=== PATIENT | female | born 1960 | race Caucasian/White ===

== ENCOUNTER 2024-05-06 16:30 | Outpatient (RCR) | payer OTHER, SELFPAY ==
--- NOTE | 2024-03-28 17:06 | HP.PTEVAL ---
Patient's Visit Information Visit Information Visit Information: KING CHRISTY is a 63 year old F referred to Physical Therapy by Dr. 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 Date of Evaluation: 03/28/24 Physical Therapist: Miguel Andrade, PT, ATC Visit Plan Frequency: 2-3x /Week Duration: 4-6 Weeks Plan: R knee PROM/mobs, stretching and strengthening, core stab ex's, balance and proprio, nustep, and HEP Subjective Subjective: DOS: 03/26/24. Pt reports having a chronic Hx of R knee pain prior to having this surgery. Pt reports she is in a lot of pain at this time. Pt notes her L knee is very sore and she has to have that one replaced soon. Pt denies tingling or numbness at this time. Pt reports the area that is the most sore is where the tourniquet was. Pt reports she has been working on her ROM some at home, but notes she is having a very difficult time with moving her knee. Pt reports sleep difficulty at this time secondary to pain. Pt reports she has 4 steps to enter her home, and has to negotiate them one step at a time. 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 0/10 pain while sitting here at rest, 10/10 pain with movement. Pain R knee: Pain Intensity (Out of 10): 0 Pain Intensity Range: 10 Objective Objective: Neuro: B LE sensation is WNL to light touch TU sec Girth at joint line: L knee 36 cm, R knee 42 cm MMT: R knee flex= 0, ext = 3.5 #F; L knee flex= 24, ext= 23 #F ROM: L knee 0-127, R knee 0-20-45 degrees Gait: Pt is able to ambulate 130 feet with WW until [id number] to rest secondary to pain Balance/Special Test Scores WOMAC Total Score: 96 WOMAC Percentatge: 0 Goals Goal 1:: Decrease R knee pain x 50% to aid with sleep Goal Time Frame: 4-6 Weeks Goal 2:: Increase R knee strength x 20#F to aid with stair negotiation Goal Time Frame: 4-6 Weeks Goal 3:: Pt will perform TUG in under 10 seconds to aid with community ambulation Goal Time Frame: 4-6 Weeks Goal 4:: I with HEP Goal Time Frame: 4-6 Weeks Rehabilitation Potential Physical Therapy Diagnosis: Pt has R knee pain, weakness, and limited ROM secondary to R TKA Rehabilitation Potential: Good Anticipated Interventions Patient/Client Instruction: Educate patient on: Condition and Plan of Care For the Purpose of:: To improve self management Therapeutic Exercise to Include: Strength training, Endurance training, Balance training, Flexibilty training, Gait and locomotor training, Passive ROM, Active ROM and Dynamic Lumbar Stabilization For the Purpose of:: To decrease pain, To increase ROM and To improve muscle performance and motor function Cryotherapy (ice pack, ice massage): Yes For the Purpose of:: To decrease pain Text: Thank you for the opportunity to evaluate your patient. For Medicare and Medicare HMO plans, please review the plan of care and approve it. It will need to be FAXED BACK to us at [phone] for Medicare purposes. For Medicare only, by signing this I certify the plan of care. Please let me know if there are questions or concerns regarding this plan of care. Physician Signature: Date:
--- NOTE | 2024-05-06 16:56 | HP.PTDCSUM ---
Discharge Summary D/C summary: It has been my pleasure to treat KING CHRISTY referred by Dr. Gaurav Zapata MD, with the diagnosis of R TKA 03/26/24 for a total of 10 visit(s). Discharge Date: Please see the following information for a summary of their discharge status. Subjective Subjective: Pt reports feeling great and states she feels like she is ready to be discharged from therapy. Pain R knee: Pain Intensity (Out of 10): 1 Overall Improvement % Improvement: 90 Objective Objective/Function: ROM: R knee flex: 130 deg, ext: 8 deg MMT: R knee flex: 11 , ext: 39 #F TU.78 sec Pt is I with HEP Rx goals achieved Goals Goal 1:: Decrease R knee pain x 50% to aid with sleep Goal Progress: Goal Met Goal 2:: Increase R knee strength x 20#F to aid with stair negotiation Goal Progress: Goal Met Goal 3:: Pt will perform TUG in under 10 seconds to aid with community ambulation Goal Progress: Goal Met Goal 4:: I with HEP Goal Progress: Goal Met Plan Plan: Discharge to HEP D/C Information d/c sentence: If there are questions or concerns regarding this patient's physical therapy, please feel free to call me at [phone]. Thank you for the referral of this patient. Sincerely, Miguel Andrade, PT, ATC Balance/Gait/Functional tests Balance/Special Test Scores Lower Extremity Functional Score: 58 WOMAC Total Score: 96 WOMAC Percentage: 0 Improvement % Improvement: 90
== END 2024-05-06 19:00 | disposition home or self-care (01) ==
LOC: PT 16:30
PROVIDERS: Referring Provider Specialist; Visit Provider Specialist
DX: Z47.1 Aftercare following joint replacement surgery (principal); Z96.651 Presence of right artificial knee joint
CPT/HCPCS: 97110; 97140; 97161; 97530

== ENCOUNTER → 2024-05-30 | Outpatient (CLI) | payer OTHER, SELFPAY ==
[2024-05-30 16:24] LABS: Absolute Lymphocyte Count 2.27 X10^3/uL (0.83-4.51); Absolute Neutrophil Count 3.5 X10^3/uL (2.0-7.7); Basophil# 0.04 X10^3/uL; Basophil% 0.6 % (0-1); Eosinophil# 0.17 X10^3/uL; Eosinophils% 2.7 % (0-5); Hematocrit 38.3 % (37-47); Hemoglobin 12.2 g/dL (12.0-15.0); Lymphocyte # 2.27 X10^3/ul (0.83-4.51); Lymphocyte % 35.4 % (19-41); Mean Corp Hgb Conc 31.9 g/dL (32-36); Mean Corpuscular Hgb 27.7 pg (27.0-32.0); Mean Platelet Vol. 8.6 fl (6.2-12.0); Monocyte# 0.36 X10^3/uL; Monocyte% 5.6 % (0-10); NRBC Flagged by Analyzer 0 % (0-5); Neutrophil # 3.53 X10^3/uL (2.7-7.7); Neutrophil % 55.1 % (47-70); Platelet Count 282 K/mm3 (150-450); RBC Distribution Width CV 12.8 % (11.6-14.6); RBC Distribution Width SD 40.6 fl (35.1-43.9); White Blood Count 6.4 K/mm3 (4.4-11.0)
--- NOTE | 2024-05-30 16:28 | CT_ITS ---
EXAM: CT LEFT LOWER EXTREMITY WITHOUT INTRAVENOUS CONTRAST CLINICAL INDICATION: PAIN/OA TECHNIQUE: Helically acquired images were obtained of the left lower extremity without intravenous contrast. 2-D reformats were performed by the technologist. CTDIvol = ( 18.19 ) mGy, DLP = ( 1323.78 ) mGycm This CT exam was performed using one or more of the following dose reduction techniques: automated exposure control, adjustment of the mA and/or kV according to patient size, and/or use of iterative reconstruction technique. COMPARISON: No relevant prior studies available. FINDINGS: BONES/JOINTS: Moderate to severe tricompartmental osteoarthrosis of the knee is worse at the medial femorotibial compartment and patellofemoral compartment with mild lateral subluxation of the tibia relative to the femur. Tibial tubercle enthesopathy. At least moderate suprapatellar joint fluid. Moderate left hip osteoarthrosis. 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 At least moderate hypertrophic degenerative changes of the pubic symphysis. Calcaneal enthesopathy at the plantar aspect. Nonfused os trigonum. Ankle mortise is intact. No acute or healing fracture or malalignment. No other remarkable for unusual or suspicious lytic or sclerotic lesions of bone. SOFT TISSUES: Subcutaneous edema along the anterior aspect of the extremity. Soft tissues of the pelvis are unremarkable. Soft tissues of the ankle/foot are unremarkable. No radiopaque foreign body. REPRODUCTIVE: Bilateral tubal ligations. CT/Extremity Lower without Contra IMPRESSION: 1. Moderate to severe tricompartmental osteoarthrosis of the knee 2. At least moderate suprapatellar joint fluid. 3. 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 Electronically Signed: Evans Lester MD at 21:19 EDT ,
[2024-05-30 16:37] LABS: Albumin, Serum 4.1 g/dL (3.2-5.0); Anion Gap 7 (5-15); BUN 13 mg/dL (7-18); BUN/Creat Ratio 15.3 RATIO (10-20); Calcium,Total 9.6 mg/dL (8.5-10.1); Chloride 99 mmol/L (98-107); Creatinine, Serum 0.85 mg/dL (0.55-1.02); EST Glomerular Filtration Rate 72 mL/min (>60); Est Glom Filt Rate - Afr Amer 87 mL/min (>60); Glucose 130 mg/dL (74-106); Potassium 3.7 mmol/L (3.5-5.1); Sodium Level 135 mmol/L (136-145)
== END | disposition home or self-care (01) ==
PROVIDERS: Referring Provider Specialist; Visit Provider Specialist
DX: Z01.818 Encounter for other preprocedural examination (principal); M25.562 Pain in left knee; M21.162 Varus deformity, not elsewhere classified, left knee; M17.32 Unilateral post-traumatic osteoarthritis, left knee; M17.12 Unilateral primary osteoarthritis, left knee
CPT/HCPCS: 36415; 73700; 80048; 82040; 83036; 85025; 87077; 87081

== ENCOUNTER → 2024-06-24 | Outpatient (CLI) | payer OTHER, SELFPAY ==
--- NOTE | 2024-06-24 15:30 | VDLE_ITS ---
Reason For Study: Left leg swelling RIGHT LEFT CFV is compressible, spontaneous, phasic, GSV is normal. competent and demonstrates normal CFV is compressible, spontaneous, phasic, augmentation. competent, and demonstrates normal Procedure augmentation. This is a venous duplex using B-mode, color FV is compressible, spontaneous, phasic, flow and spectral Doppler. competent and demonstrates normal Exam performed in department. augmentation. A preliminary report was called and/or faxed POP V is compressible, spontaneous, phasic, to [facility]. competent and demonstrates normal augmentation. T/P Trunk is compressible. PTV is compressible. LT PerV is compressible. VL/Venous Duplex US, Unilateral Interpretation Summary Deep veins of the left lower extremity are patent and compressible segmentally. There is no evidence of left lower extremity deep vein thrombosis. Valvular competence appears intac t within the proximal deep venous system on the left . The left great saphenous vein appears patent a nd compressible segmentally. The right common femoral vein is patent and compressible . Ordering Physician: Junito Simental Performed By: Bertha Hahn RVT
== END | disposition home or self-care (01) ==
PROVIDERS: Referring Provider Physician Assistant Surgical; Visit Provider Physician Assistant Surgical
DX: R22.42 Localized swelling, mass and lump, left lower limb (principal)
CPT/HCPCS: 93971

== ENCOUNTER 2024-07-16 16:00 | Outpatient (RCR) | payer OTHER, SELFPAY ==
--- NOTE | 2024-06-14 13:59 | HP.PTEVAL ---
Patient's Visit Information Visit Information Visit Information: KING CHRISTY is a 63 year old F referred to Physical Therapy by Dr. Gaurav Zapata MD with a diagnosis of L TKA 06/11/24. Date of Evaluation: 06/13/24 Physical Therapist: Miguel Andrade, PT, ATC Visit Plan Frequency: 2x /Week Duration: 4-6 Weeks Plan: L knee PROM, mobs, stretching and strengthening, balance and proprio, core strengthening, nustep, and HEP Subjective Subjective: DOS: 06/11/24. Pt reports she had a L TKA performed at that time. Pt had R TKA 03/26/24. Pt notes she is in a lot of pain today. Pt reports this surgery is much more painful than her R knee was. Pt reports she is having trouble getting out of bed secondary to pain. Pt denies any tingling or numbness in L LE. Pt only has 4 stairs to enter her house. Pt reports she has to negotiate them one step at a time. Pt reports no sleep difficulty at this time with the use of meds. 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 2/10 pain while at rest on meds, 10/10 at worst (when she wakes up in the morning) Pain L TKA: Pain Intensity (Out of 10): 2 Pain Intensity Range: 10 Objective Objective: Neuro: B LE sensation is WNL to light touch. ROM: R knee 0-12-120 degrees: L knee 0-20-74 degrees MMT: R knee flex= 15, ext= 29 #F; L knee flex= 4, ext= 5 #F Girth at joint line: L knee 41 cm, R knee 38 cm Tu min, 3 sec Balance/Special Test Scores WOMAC Total Score: 95 WOMAC Percentatge: 1.0500 Goals Goal 1:: Decrease L knee pain x 50% to aid with sleep Goal Time Frame: 4-6 Weeks Goal 2:: Increase L knee ROM to 0-120 degrees to aid with restoring a more normalized gait pattern Goal Time Frame: 4-6 Weeks Goal 3:: Increase L knee strength to 90% of R knee strength to aid with stair negotiation Goal Time Frame: 4-6 Weeks Goal 4:: I with HEP Goal Time Frame: 4-6 Weeks Rehabilitation Potential Physical Therapy Diagnosis: Pt has L knee pain, weakness, and limited ROM secondary to L TKA Rehabilitation Potential: Good Anticipated Interventions Patient/Client Instruction: Educate patient on: Condition and Plan of Care For the Purpose of:: To improve self management Therapeutic Exercise to Include: Strength training, Endurance training, Balance training, Flexibilty training, Gait and locomotor training and Dynamic Lumbar Stabilization For the Purpose of:: To decrease pain, To increase ROM and To improve muscle performance and motor function Cryotherapy (ice pack, ice massage): Yes For the Purpose of:: To decrease pain Text: Thank you for the opportunity to evaluate your patient. For Medicare and Medicare HMO plans, please review the plan of care and approve it. It will need to be FAXED BACK to us at [phone] for Medicare purposes. For Medicare only, by signing this I certify the plan of care. Please let me know if there are questions or concerns regarding this plan of care. Physician Signature: Date:
--- NOTE | 2024-09-27 12:38 | HP.PT.NRP ---
Patient Information Patient Information: KING CHRISTY was seen in my office for initial evaluation on 06/13/24. The following Plan of Care was established for this patient: POC Established Initial Frequency: 2x /Week Initial Duration: 4-6 Weeks Anticipated Interventions Patient/Client Instruction: Educate patient on: Condition and Plan of Care For the Purpose of:: To improve self management Therapeutic Exercise to Include: Strength training, Endurance training, Balance training, Flexibilty training, Gait and locomotor training and Dynamic Lumbar Stabilization For the Purpose of:: To decrease pain, To increase ROM and To improve muscle performance and motor function Cryotherapy (ice pack, ice massage): Yes For the Purpose of:: To decrease pain Last Seen Last Seen: This patient was last seen in our office . Pertinent comments regarding their Physical therapy will appear below: Pt has not returned through todays date for 30 days and is discontinued at this time. At this point I will be discontinuing this patient from physical therapy. I would be happy to see this patient again in the future if found appropriate by the physician. Thank you! Miguel Andrade, PT, ATC Balance/Gait/Functional tests Balance/Special Test Scores WOMAC Total Score: 95 WOMAC Percentage: 1.0500
== END 2024-07-16 19:00 | disposition home or self-care (01) ==
LOC: PT 16:00
PROVIDERS: Referring Provider Specialist; Visit Provider Specialist
DX: Z47.1 Aftercare following joint replacement surgery (principal); Z96.652 Presence of left artificial knee joint
CPT/HCPCS: 97110; 97140; 97161; 97530